=== PATIENT | male | born 1975 | race Caucasian/White ===

== ENCOUNTER 2024-06-15 14:07 | Outpatient (REF) | payer OTHER, SELFPAY ==
[2024-06-15 15:19] LABS: Blood Urea Nitrogen 14 mg/dL (9-16); Estimated Glomerular Filt Rate > 60
== END 2024-06-15 14:08 | disposition home or self-care (01) ==
LOC: HO.LAB 14:07
PROVIDERS: PCP Internal Medicine; Visit Provider Otolaryngology
DX: Z01.818 Encounter for other preprocedural examination (principal); R13.10 Dysphagia, unspecified
CPT/HCPCS: 36415; 82565; 84520

== ENCOUNTER 2024-12-27 14:13 | Outpatient (REF) | payer OTHER, SELFPAY ==
--- OUTSIDE RECORDS SUMMARY | 2024-12-27 15:47 | XMS_ITS | Clinical Summary ---
Author Organization [facility] Address [address] [place] [address] Care Team Providers Care Director Of Medical Staff Services Name Role Phone Conrado Goins MD Primary Care Provider Allergies Active Allergy Reactions Criticality Noted Date Comments Oxycodone-Acetaminophen Itching 09/29/2015 Pollen Extracts 09/29/2015 Medications blood-glucose meter (OneTouch Verio Flex meter) misc Apply 1 Each topically daily. 11/03/19 19 Active pen needle, diabetic (BD Ultra-Fine Short Pen Needle) 31 gauge x 5/16 needle FOR INSULIN ADMINSTRATION FOUR TIMES DAILY 12/08/19 24 Active lancets (OneTouch Delica Plus Lancet) 33 gauge 1 Each by Does not apply route 6 times daily. USE TO TEST UP TO 6-7 TIMES/DAY. E11.9 12/08/19 24 Active insulin glargine (Lantus Solostar U-100 Insulin) 100 unit/mL (3 mL) injection pen Inject 50 Units into the skin daily. Active cetirizine (ZyrTEC) 10 mg tablet Take 1 Tablet by mouth daily. Active blood-glucose sensor (FreeStyle Marielle 3 Sensor) deviceIndicati ons:Type 2 diabetes mellitus without complication, with longterm current use of insulin pump (CMS/[facility] V24, CMS/HCC V28) Box = Kit = EA, change sensor every 14 days 6 each 1 08/24/20 24 Active blood-glucose meter,continuo us (FreeStyle Marielle 3 Orrum) miscIndication s:Type 2 diabetes mellitus without complication, with longterm current use of insulin pump (CMS/[facility] V24, CMS/HCC V28) To check sugars regularly 1 each 08/24/20 24 Active tadalafiL (CIALIS) 20 mg tablet Take 1 tablet (20 mg total) by mouth 1 (one) time each day if needed for erectile dysfunction. 10 tablet 3 11/11/19 25 Active blood sugar diagnostic (OneTouch Verio test strips) test strip Blood sugar checks 5 times a day 450 each 3 11/24/19 25 Active insulin aspart (NovoLOG Flexpen U-100 Insulin) 100 unit/mL (3 mL) injection pen Inject 5-15 Units under the skin 3 (three) times a day before meals. Inject 5-15 Units into the skin 3 times daily (before meals). Between 100-149=5u, 150-199=7u, 200-249=9u, 250-299=11u, 300-349=13u, 350-399=15u, Above 400 Call MD 15 mL 2 12/08/19 25 Active fluticasone (VERAMYST) 27.5 mcg/actuation nasal spray Administer 1-2 sprays into each nostril 1 (one) time each day. 10 g 2 12/08/19 25 Active insulin aspart (NovoLOG Flexpen U-100 Insulin) 100 unit/mL (3 mL) injection pen Inject 5-15 Units into the skin 3 times daily (before meals). Between 100-149=5u, 150-199=7u, 200-249=9u, 250-299=11u, 300-349=13u, 350-399=15u, Above 400 Call MD 01/21/20 24 025 Discontin ued(Reord er) naproxen (NAPROSYN) 500 mg tablet Take 1 tablet (500 mg total) by mouth 2 (two) times a day with meals for 10 days. 20 each 11/25/19 25 025 Discontin ued(Expir ed) Active Problems Problem Noted Date Diagnosed Date Seasonal allergies 06/17/2024 Type 2 diabetes mellitus wit hout complication, with longterm current use of insulin pump ([facility] V24, [facility] V28) 06/17/2024 Renal cyst, left 08/07/2020 Overview (06/17/2024): Incidental finding on abdominal ultrasound August 04, 2020. Gastritis 10/06/2019 Overview (06/17/2024): Mild gastritis seen at upper endoscopy. H. pylori testing negative. Lateral epicondylitis of both elbows 08/28/2018 Erectile dysfunction 04/21/2015 Mixed hyperlipidemia 04/21/2015 Overview (06/17/2024): IMO update GERD (gastroesophageal reflux disease) 5 Marijuana use 01/20/2015 Encounters Date Type Department Care Team Description 12/08/2024 Telephone Adult [address] [phone] Conrado Goins MD Medication Problem 12/07/2024 9:00 AM EDT Office Visit [address] [phone] Conrado Goins MD Seasonal allergic rhinitis, unspecified trigger (Primary Dx); Halitosis 11/24/2024 3:00 PM EDT Office Visit Orthopedic Surgery - [address] [place] [phone] Indira Waite PA Medial epicondylitis of elbow, left 11/10/2024 2:30 PM EDT Office Visit [address] [phone] Conrado Goins MD Type 2 diabetes mellitus without complication, with longterm current use of insulin pump ([facility] V24, [facility] V28) (Primary Dx); Mixed hyperlipidemia; Erectile dysfunction, unspecified erectile dysfunction type; Medial epicondylitis of elbow, left from Last 3 Months Immunizations Name Administration Dates Next Due HPV 9-valent (Gardisil) 9yo to less than 46yo 10/23/2021,07/04/2021 Hepatitis A Pediatric (Havri x; Vaqta) 12mo to less than 19yo 09/16/2011,06/10/2007 Hepatitis B Pediatric (Enger ix B; Recombivax HB) to less than 20 yo 07/21/2007,12/28/2003,07/28/2003,06/28 Influenza Quadravalent, MDCK , 0.5ml, preservative free (Flucelvax) 6mo and older 05/08/2018 Influenza trivalent, 0.5mL, preservative free (Fluarix; FluLaval; Fluzone) ages 6mo and older (Afluria) 3 years and older 06/27/2016 Influenza, Unspecified 05/21/2023,2020,04/09/2020,08/12,06/23/2013,09/16/2012,06/12/2007 ,06/24/2002 MMR, measles mumps and rubel la Live (Priorix; M-M-R II) 12mo and older 05/12/2019 Meningococcal MCV4P 04/21/2008 Moderna SARS-CoV-2 COVID-19, mRNA, LNP-S, preservative free 05/02/2022 PPD Test 07/03/2016 Pneumococcal conjugate 13 va lent (Prevnar 13, PCV13) 2mo and older 08/12/2014 Pneumococcal polysaccharide 23 valent (Pneumovax 23) 2yo and older 11/02/2007 Td Tetanus diptheria (Tdvax) 7yo and older 06/12/2007 Tdap Tetanus diptheria acell ular pertussis (Boostrix; Adacel) 7yo and older 08/12/2014 Surgical History Surgery Date Site/Laterality Comments TONSILLECTOMY PROCEDURE: HISTORICAL TONSILLECTOMY EYE SURGERY PROCEDURE: [place] TRABECULOPLASTY BY LASER SURGERY; COMMENT: bilateral ESOPHAGOGASTRODUODENOSCOPY 10/06/2019 PROCEDURE: [place] EGD TRANSORAL BIOPSY SINGLE/MULTIPLE; COMMENT: Mild gastritis otherwise normal. Biopsies consistent with chronic gastritis, but negative for H. pylori infection. COLONOSCOPY 04/18/2022 PROCEDURE: HISTORICAL COLONOSCOPY; COMMENT: negative Medical History Medical History Date Comments Seasonal allergies DX:Seasonal a llergies GERD (gastroesophageal reflux disease) 01/20/2015 DX:GERD (gastroesophageal reflux disease) Erectile dysfunction 04/21/2015 DX:Erectile dysfunction Hyperlipidemia with target L DL less than 100 04/21/2015 DX:Hyperlipidemia with targe t LDL less than 100; COMMENT: IMO update Marijuana use 01/20/2015 DX:Marijuana use Type 2 diabetes mellitus (CM S/HCC V24, CMS/HCC V28) DX:Type 2 diabetes mellitus (HCC) History of Helicobacter pylo ri infection 07/13/2019 DX:History of Helicobacter p ylori infection; COMMENT: Started on triple therapy 07/13/19 Gastric biopsy on 10/06/2019 was negative for evidence of H. pylori infection. Gastritis 10/06/2019 DX:Gastritis; CO MMENT: Mild gastritis seen at upper endoscopy. H. pylori testing negative. Renal cyst, left 08/07/2020 DX:Renal cyst, left; COMMENT: Incidental finding on abdominal ultrasound August 04, 2020 Family History Medical History Relation Name Comments Other: Unknown Hx Father Other: Unknown Father's side Colon cancer Maternal Grandfather Depression Mother Other: abnormal pap Mother Diabetes Mother's side Breast cancer Neg Hx Ovarian cancer Neg Hx Prostate cancer Neg Hx Uterine cancer Neg Hx Relation Name Status Comments Brother Alive half brother; d epression/anxiety Daughter Alive 2004; healthy Father Other unknown Father's side Maternal Grandfather Maternal Grandmother Alive Mother Alive depression/anxi ety Mother's side Paternal Grandfather Other unknown Paternal Grandmother Other unknown Son Alive 1991; healthy Social History Tobacco Use Types Packs/Day Years Used Date Smoking Tobacco: Former Smokeless Tobacco: Never Tobacco Cessation:Counseling Given: Not Answered Alcohol Use Standard Drinks/Week Comments Yes 0 (1 standard drink = 0.6 oz pur e alcohol) Financial Risk Answer Date Recorded How hard is it for you to pa y for the very basics like food, housing, medical care, and air conditioning / heating? Patient declined 11/09/2024 Food Risk Answer Date Recorded Within the past 12 months we worried whether our food would run out before we got money to buy more. Never true 025 Within the past 12 months th e food we bought just didn't last and we didn't have money to get more. Patient declined 10/23 Sex and Gender Information Value Date Recorded Sex Assigned at Not on file Legal Sex Male 3:00 AM EST Gender Identity Not on file Sexual Orientation Not on file Obstetrics History Last Filed Vital Signs Vital Sign Reading Time Taken Comments Blood Pressure 122/82 12/07/2024 8:43 AM EDT Pulse 64 12/07/2024 8:43 AM EDT Temperature 36.6 ??C (97.8 ??F) 12/07/2024 8:43 AM ED T Respiratory Rate 15 12/07/2024 8:43 AM EDT Oxygen Saturation 97% 08/24/2024 1:15 PM EST Inhaled Oxygen Concentration - - Weight 81.6 kg (180 lb) 12/07/2024 8:43 AM EDT Height 175.3 cm (5' 9.02 ) 11/24/2024 2:56 PM ED T Body Mass Index 26.57 11/24/2024 2:56 PM EDT Plan of Treatment Upcoming Encounters Date Type Department Care Team (Late st Contact Info) Description 01/05/2025 1:45 PM EDT Office Visit Orthopedic Surgery - [place] [address] [facility] [address] [place] [phone] Indira Waite PA [address] [place] [phone] 03/30/2025 3:00 PM EDT Office Visit Adult Medicine [facility] [address] [place] [address] Conrado Goins MD [address] [place] [address] Health Maintenance Due Date Last Done Comments Hepatitis B Vaccines (1 of 3 - 19+ 3-dose series) 1995 07/21/2007, 12/28/2003, 07/28/2003, Additional history exists DTaP,Tdap,and Td Vaccines (3 - Td or Tdap) 08/12/2024 08/12/2014, 06/12/2007 Diabetes: Annual Retina Eye Exam 12/18/2024 12/19/2023 Diabetes: Blood Sugar Control Test (HGBA1C) 05/22/2025 11/19/2024, 06/08/2024, 06/08/2024, Additional history exists Diabetes: Annual Urine Albumin-Creatinine Ratio (uACR) 06/08/2025 06/08/2024 Diabetes: Annual Foot Exam 06/08/2025 06/08/2024 Depression Screening 11/09/2025 11/09/2024 Social Influencers of Health Screening 11/09/2025 11/09/2024 Diabetes: Annual GFR (Glomerular Filtration Rate) 12/09/2025 12/09/2024, 12/24/2023, 12/24/2023 Pneumococcal Vaccine: Pediatrics (0 to 5 Years) and At-Risk Patients (6 to 64 Years) (3 of 3 - PCV20 or PCV21) 2026 08/12/2014, 11/02/2007 Cholesterol Screening (Lipid Panel) 11/19/2029 11/19/2024, 06/08/2024, 06/08/2024, Additional history exists Colorectal Cancer Screening: Colonoscopy 04/18/2032 04/18/2022 Meningococcal ACWY Vaccine Aged Out 04/21/2008 N o longer eligible based on patient's age to complete this topic Hepatitis A Vaccines Aged Out 09/16/2011, 06/12/2007, 06/10/2007 No longer eligible based on patient's age to complete this topic MMR Vaccines Aged Out 05/12/2019 No longer eligi ble based on patient's age to complete this topic HIV Screening Completed 06/29/2021 Hepatitis C Screening Completed 06/29/2021 HPV Vaccines Completed 05/02/2022, 03/0 08/2021, 07/04/2021 COVID-19 Vaccine Completed 04/26/2024, , 05/02/2022, Additional history exists Influenza Vaccine Completed 04/26/2024, , 06/17/2022, Additional history exists HIB Vaccines Aged Out No longer eligi ble based on patient's age to complete this topic IPV Vaccines Aged Out No longer eligi ble based on patient's age to complete this topic Meningococcal B Vaccine Aged Out No l onger eligible based on patient's age to complete this topic RSV Immunization Patients Under 20 months Aged Out No longer eligible based on patient's age to complete this topic Varicella Vaccines Aged Out No longer eligible based on patient's age to complete this topic Procedures Procedure Name Priority Date/Time Associated Diagnosis Comments COMPREHENSIVE METABOLIC PANEL Routine 12/09/2024 1:40 PM EDT Type 2 diabetes mellitus without complication, 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 ([facility] V24, [facility] V28) Halitosis XR ELBOW 3+ VIEWS LEFT Routine 11/24/2024 3:13 PM EDT Medial epicondylitis of elbow, left LIPID PANEL WITH REFLEX TO DIRECT LDL Routine 11/19/2024 7:52 AM EDT Mixed hyperlipidemia HEMOGLOBIN A1C Routine 11/19/2024 7:52 AM EDT Type 2 diabetes mellitus without complication, with longterm current use of insulin pump ([facility] V24, [facility] V28) URINE ALBUMIN CREATININE RATIO Routine 06/08/2024 DIABETES FOOT EXAM Routine 06/08/2024 DIABETES EYE EXAM Routine 12/19/2023 COLONOSCOPY Routine 04/18/2022 HEPATITIS C SCREENING Routine 06/29/2021 HIV SCREENING Routine 06/29/2021 from Last 3 Months or Most Recently Relevant to Health Maintenance Results * (ABNORMAL) Comprehensive metabolic panel (12/09/2024 1:40 PM EDT) Sodium 136 133 - 145 mmol/L LAB CHEMISTRY METHOD 12/09/2024 3:39 PM [facility] Potassium 4.4 3.5 - 5.5 mmol/L LAB CHEMISTRY METHOD 12/09/2024 3:39 PM [facility] Chloride 103 96 - 110 mmol/L LAB CHEMISTRY METHOD 12/09/2024 3:39 PM [facility] CO2 29 21 - 32 mmol/L LAB CHEMISTRY METHOD 12/09/2024 3:39 PM [facility] Anion Gap 4 3 - 11 LAB CHEMISTRY METHOD 12/09/2024 3:39 PM [facility] Glucose 110(H) 70 - 100 mg/dL LAB CHEMISTRY METHOD 12/09/2024 3:39 PM [facility] BUN 19 5 - 25 mg/dL LAB CHEMISTRY METHOD 12/09/2024 3:39 PM [facility] Creatinine 1.03 0.70 - 1.30 mg/dL LAB CHEMISTRY METHOD 12/09/2024 3:39 PM [facility] eGFR 90 >=60 mL/min/1. 73m2 LAB CHEMISTRY METHOD 12/09/2024 3:39 PM [facility] Comment:Calculation based on the??Chronic Kidney Disease Epidemiology Collaboration (CKD-EPI) equation refit??without adjustment for race. BUN/Creatinine Ratio 18.4 LAB CHEMISTRY METHOD 12/09/2024 3:39 PM [facility] Calcium 9.3 8.5 - 10.5 mg/dL LAB CHEMISTRY METHOD 12/09/2024 3:39 PM [facility] AST (SGOT) 19 10 - 42 unit/L LAB CHEMISTRY METHOD 12/09/2024 3:39 PM [facility] ALT (SGPT) 29 10 - 60 unit/L LAB CHEMISTRY METHOD 12/09/2024 3:39 PM [facility] Alkaline Phosphatase 91 42 - 121 unit/L LAB CHEMISTRY METHOD 12/09/2024 3:39 PM [facility] Total Protein 6.8 6.0 - 8.0 g/dL LAB CHEMISTRY METHOD 12/09/2024 3:39 PM [facility] Albumin 4.0 3.2 - 5.0 g/dL LAB CHEMISTRY METHOD 12/09/2024 3:39 PM [facility] Total Bilirubin 0.3 0.0 - 1.4 mg/dL LAB CHEMISTRY METHOD 12/09/2024 3:39 PM [facility] Blood Venous blood specimen / Unknown Venipuncture / Unknown 12/09/2024 1:40 PM EDT 12/09/2024 2:37 PM EDT Conrado Goins MD LAB BLOOD ORDERABLES Final Result [facility] [address] [place] [address], [place] [phone] * XR Elbow 3+ Views Left (11/24/2024 3:13 PM EDT) Anatomical Region Laterality Modality Upper Extremities, Elbow Left Compute d Radiography Narrative 11/24/2024 3:32 PM EDT Date of Visit: 11/24/2024 Reason for visit: Left elbow pain Views: AP, lateral, oblique left elbow Comparison: None Findings: No fracture, dislocation or lytic lesions normal radiocapitellar relationships no calcifications Impression: Normal left elbow radiograph Indira MOLINA IMG XR PROCEDURES Final Resul t * (ABNORMAL) Lipid panel with reflex to direct LDL (11/19/2024 7:52 AM EDT) Cholesterol 177 0 - 200 mg/dL LAB CHEMISTRY METHOD 11/19/2024 10:11 AM T [facility] Triglycerides 49 0 - 150 mg/dL LAB CHEMISTRY METHOD 11/19/2024 10:11 AM EDT [facility] HDL 57 >=40 mg/dL LAB CHEMISTRY METHOD 11/19/2024 10:11 AM [facility] LDL Calculated 110(H) 0 - 100 mg/dL LAB CHEMISTRY METHOD 11/19/2024 10:11 AM [facility] VLDL Cholesterol Jose 9.8 mg/dL LAB CHEMISTRY METHOD 11/19/2024 10:11 AM [facility] Non HDL Chol. (LDL+VLDL) 120 <145 mg/dL LAB CHEMISTRY METHOD 11/19/2024 10:11 AM EDT [facility] Chol/HDL Ratio 3.1 0.0 - 4.4 LAB CHEMISTRY METHOD 11/19/2024 10:11 AM EDT [facility] Blood Venous blood specimen / Unknown Venipuncture / Unknown 11/19/2024 7:52 AM EDT 11/19/2024 9:16 AM EDT Conrado Goins MD LAB BLOOD ORDERABLES Final Result Performing Organization Address City/[facility]/ZIP Co de Phone Number [facility] [address] [place] [address], [place] [phone] * (ABNORMAL) Hemoglobin A1c (11/19/2024 7:52 AM EDT) [facility] Hemoglobin A1C 7.3(H) <6.5 % LAB CHEMISTRY METHOD 11/19/2024 10:30 AM EDT [facility] Mean Bld Glu Estim. 163 mg/dL LAB CHEMISTRY METHOD 11/19/2024 10:30 AM EDT [facility] Blood Venous blood specimen / Unknown Venipuncture / Unknown 11/19/2024 7:52 AM EDT 11/19/2024 9:18 AM EDT Conrado Goins MD LAB BLOOD ORDERABLES Final Result Performing Organization Address City/[facility]/ZIP Co de Phone Number [facility] [address] [place] [address], [place] [phone] * Urine Albumin Creatinine Ratio (06/08/2024) Pathologist [facility] Urine Albumin Creatinine Ratio Abstracted Historical Provider HEALTH MAINTENANCE Final Result * Diabetes Foot Exam (06/08/2024) [facility] Diabetes: Annual Foot Exam Abstracted Historical Provider HEALTH MAINTENANCE Final Result * Diabetes Eye Exam (12/19/2023) [facility] Diabetes: Annual Retina Eye Exam Abstracted Historical Provider HEALTH MAINTENANCE Final Result * Colonoscopy (04/18/2022) Colonoscopy No Interpretation , Abstracted Anatomical Region Laterality Modality Other [facility] Provider HEALTH MAINTENANCE Final Result * HIV Screening (06/29/2021) Pathologist [facility] HIV Screening Abstracted [facility] Provider HEALTH MAINTENANCE Final Result * Hepatitis C Screening (06/29/2021) Pathologist [facility] Hepatitis C Screening Abstracted [facility] Provider HEALTH MAINTENANCE Final Result from Last 3 Months or Most Recently Relevant to Health Maintenance Insurance [facility] Care Teams Director Of Medical Staff Services Relationship Specialty Start Date End Date Conrado Goins MD [address] [place] [id number] PCP - General 06/10/24
== END 2024-12-27 14:14 | disposition home or self-care (01) ==
LOC: HO.LNP 14:13
PROVIDERS: Visit Provider Otolaryngology
DX: B49 Unspecified mycosis (principal)
CPT/HCPCS: 87070; 87102; 87205